=== PATIENT | female | born 1965 | race Caucasian/White ===

== ENCOUNTER 2017-02-16 19:29 | Emergency (ER) | payer SELFPAY ==
[~2017-02-16] VITALS: Ht 162.6 cm; Wt 59.0 kg
[2017-02-16 19:53] VITALS: BP 136/77
[2017-02-16] MEDS ORDERED: LIDOCAINE 1% HCL (LOCAL ANESTH.) INJ 20ML MDV IJ ONE (20:30)
[2017-02-16] MEDS ORDERED: BACITRACIN TOP OINT 1 UD PKG TOP ONE (20:30)
[2017-02-16] MEDS ORDERED: TETANUS-DIPTH-ACEL PERTUSSIS 0.5ML SYRG IM ONE (20:30)
== END 2017-02-16 21:31 | disposition home or self-care (01) ==
LOC: ER 19:39
DX: S61.215A Laceration without foreign body of left ring finger without damage to nail, initial encounter (principal); Z23 Encounter for immunization; W25.XXXA Contact with sharp glass, initial encounter; Y93.89 Activity, other specified; Y99.8 Other external cause status; Y92.89 Other specified places as the place of occurrence of the external cause
CPT/HCPCS: 12002; 90471; 90715; 99283; J2001